=== PATIENT | male | born 2000 | race Caucasian/White ===

== ENCOUNTER 2022-11-06 18:20 | Emergency (ER) | payer MEDICAID ==
[~2022-11-06] VITALS: Ht 180.3 cm; Wt 81.6 kg
[2022-11-06] MEDS ORDERED: ONDANSETRON 4 MG/2 ML VIAL ONE (18:36)
[2022-11-06] MEDS ORDERED: MORPHINE SULFATE 4 MG/1 ML DISP.SYRIN ONE (18:36)
[2022-11-06] MEDS ORDERED: MORPHINE SULFATE 2 MG/1 ML DISP.SYRIN IV ONE (18:45)
[2022-11-06] MEDS ORDERED: ONDANSETRON 4 MG/2 ML VIAL IV ONE (18:45)
[2022-11-06 18:52] LABS: HEMATOCRIT 42.4 % (36.7-47.1); MEAN CORPUSCULAR HEMOGLOBIN 27.4 uug (23.8-33.4); MEAN CORPUSCULAR VOLUME 82.5 fL (73.0-96.2); PLATELET COUNT (AUTO) 377 K/uL (152-348)
--- NOTE | 2022-11-06 19:00 | NUR ---
Received report from JIMENA James for continuity of care. Patient here for abd pain, currently pending US. Need to obtain urine for urinalysis.
[2022-11-06 19:04] LABS: CREATININE 0.9 mg/dL (0.6-1.3); POTASSIUM 4.1 mmol/L (3.5-5.1)
[2022-11-06 19:15] LABS: BILIRUBIN,DIRECT 0.2 mg/dL (0.0-0.2); BILIRUBIN,TOTAL 0.6 mg/dL (0.2-1.0); TOTAL PROTEIN, SERUM 7.5 g/dL (6.4-8.2)
--- NOTE | 2022-11-06 20:01 | NUR ---
US tech at bedside.
[2022-11-06] MEDS ORDERED: FAMOTIDINE. 20 MG/2 ML VIAL IV ONE ×2 (20:07→20:15)
[2022-11-06] MEDS ORDERED: LIDOCAINE VISCUS 2% 15 ML UDC ONE (20:07)
[2022-11-06] MEDS ORDERED: MAG HYDROX/AL HYDROX/SIMETH 30 ML LIQUID UDC ONE (20:07)
[2022-11-06] MEDS ORDERED: LIDOCAINE VISCUS 2% 15 ML UDC MM ONE (20:15)
[2022-11-06] MEDS ORDERED: MAG HYDROX/AL HYDROX/SIMETH 30 ML LIQUID UDC PO ONE (20:15)
--- NOTE | 2022-11-06 20:36 | NUR ---
Sent to radiology for CT scan.
[2022-11-06] MEDS ORDERED: IV NORMAL SALINE 1000 ML BAG IV ONE (22:15)
--- NOTE | 2022-11-06 22:57 | NUR ---
Patient is A/Ox4. Patient does not wish to proceed with medical care recommended by Dr. Patten. Patient given information related to possible complications, up to and including , which could occur as a result of leaving the hospital at this time. Patient verbalizes understanding of risks involved due to leaving against medical advice. Patient has signed AMA form.
[2022-11-06 22:58] VITALS: BP 128/77
== END 2022-11-06 22:58 | disposition left against medical advice (07) ==
LOC: ER 18:31
DX: K56.600 Partial intestinal obstruction, unspecified as to cause (principal)
CPT/HCPCS: 99285; 74176; 96374; 76705; 96375; 80076; 80048; 83690; 85025; J3490; J2405; J2270; A4663